=== PATIENT | male | born 1935 | race Caucasian/White ===

== ENCOUNTER 2018-04-11 09:14 | Inpatient (IN) | payer MEDICARE, MEDICAID ==
[~2018-04-11] VITALS: Ht 167.6 cm; Wt 62.0 kg
[~2018-04-11 09:14] MED LIST: ALEN10TA; ATRIN IH; COL100C PO; NAPR-232 PO; OMEP-84 PO; PROVENTIL; XANAX
[2018-04-11 10:17] LABS: BASOPHILS % (AUTO) 0.9 % (0-1); EOSINOPHILS % (AUTO) 0.4 % (0-6); HEMATOCRIT 31.8 % (42.0-52.0); HEMOGLOBIN 10.7 g/dl (14.0-17.9); LYMPHOCYTES # (AUTO) 0.4 X10'3 (1.1-4.8); LYMPHOCYTES % (AUTO) 8.9 % (21-51); MEAN CORPUSCULAR HEMOGLOBIN 34.1 PG (27.0-31.0); MEAN CORPUSCULAR HGB CONC 33.5 g/dL (33.0-36.5); MEAN CORPUSCULAR VOLUME 101.9 FL (78-98); MEAN PLATELET VOLUME 7.7 FL (7.4-10.4); MONOCYTES # (AUTO) 0.7 X10'3 (0-0.9); MONOCYTES % (AUTO) 14.1 % (2-12); NEUTROPHILS # (AUTO) 3.8 X10'3 (1.8-7.7); NEUTROPHILS % (AUTO) 75.7 % (42-75); PLATELET COUNT 197 X10'3 (140-440); RED BLOOD COUNT 3.13 X10'6 (4.70-6.10)
[2018-04-11 10:20] LABS: ALANINE AMINOTRANSFERASE 23 U/L (12-78); ALBUMIN 3.3 G/DL (3.4-5.0); ALBUMIN/GLOBULIN RATIO 1.1 (1.1-1.5); ALKALINE PHOSPHATASE 81 IU/L (46-116); ANION GAP 6 (8-16); ASPARTATE AMINO TRANSFERASE 19 U/L (10-37); BLOOD UREA NITROGEN 14 MG/DL (7-18); BUN/CREATININE RATIO 17.7 (5.4-32.0); CALCIUM 8.7 MG/DL (8.5-10.1); CHLORIDE 102 MMOL/L (99-107); CREATININE 0.79 MG/DL (0.60-1.10); GLUCOSE 93 MG/DL (70-104); POTASSIUM 4.3 MMOL/L (3.5-5.1); SODIUM 138 MMOL/L (135-145); TOTAL CARBON DIOXIDE 30.4 MMOL/L (24-32); TOTAL PROTEIN 6.3 G/DL (6.4-8.2); eGFR > 90 ML/MIN
[2018-04-11 11:06] LABS: TROPONIN I < 0.04 NG/ML (0.0-0.05)
[2018-04-11] MEDS ORDERED: iohexol 350MG/ML 100ml bottle IV ONE (11:43)
[2018-04-11] MEDS ORDERED: heparin 25,000 UNIT/250ml bag 250 ML IV SCH (12:57)
[2018-04-11] MEDS ORDERED: heparin 10,000 units/1 ML INJ IV ONE (13:00)
[2018-04-11] MEDS ORDERED: heparin 10,000 units/1 ML INJ IV PRN (13:00)
[2018-04-11] MEDS ORDERED: potassium Cl 20 mEq SR tablet PO PRN ×2 (13:25)
[2018-04-11] MEDS ORDERED: potassium Cl 40MEQ/NS 500ml 500 ML IV PRN ×2 (13:25)
[2018-04-11] MEDS ORDERED: magnesium 2GM in 50ml NS 50 ML IV PRN (13:25)
[2018-04-11] MEDS ORDERED: magnesium Cl slow-release 64mg tablet PO PRN (13:25)
[2018-04-11] MEDS ORDERED: magnesium hydroxide 30ml (MOM) UD suspension PO PRN (13:25)
[2018-04-11] MEDS ORDERED: mag hydrox/Alum hydrox/simeth 30ml oral suspension PO PRN (13:25)
[2018-04-11] MEDS ORDERED: acetaminophen 325mg tablet PO PRN (13:25)
[2018-04-11] MEDS ORDERED: magnesium 4gm in 100ml NS 100 ML IV PRN (13:25)
[2018-04-11] MEDS ORDERED: ondansetron/PF 4mg/2ml inj IV PRN (13:25)
[2018-04-11 13:29] LABS: PARTIAL THROMBOPLASTIN TIME 30 SECONDS (22-32)
[2018-04-11] MEDS: heparin 25,000 UNIT/250ml bag 250 ML IV SCH ×2 (13:35→22:41)
[2018-04-11] MEDS: normal saline 1000ml 1,000 ML IV SCH (14:52)
[2018-04-11] MEDS ORDERED: OMEP40CA37 PO (16:06)
[2018-04-11] MEDS ORDERED: ALBU18HF2 IH (16:26)
[2018-04-11] MEDS ORDERED: FLUT1AER IH (16:26)
[2018-04-11] MEDS ORDERED: TIOT18CA3 IH (16:36)
[2018-04-11 18:00] VITALS: BP 121/63
--- NOTE | 2018-04-11 18:53 | NUR ---
Problems reprioritized. Patient report given, questions answered & plan of care reviewed with Tonio SCHULZ.
[2018-04-11] MEDS: albuterol 2.5 MG/3 ML nebule NEB SCH ×2 (19:16→23:07)
[2018-04-11 19:56] LABS: ABG BASE EXCESS -0.6 mmol/L (-2.0-3.0); ABG HCO3 23.5 mmol/L (22.0-26.0); ABG OXYGEN SATURATION 95.3 % (95-98); ABG PCO2 (T) 36.6 mmHg (35.0-48.0); ABG PH (T) 7.426 (7.350-7.450); ABG PO2 (T) 77.1 mmHg (83-108); ALLEN'S TEST Positive; FCOHb 0.3 % (0.5-1.5); FLOW 1 L/min; FMetHb 0.2 % (0.3-1.12); FO2Hb 94.8 % (94-100)
[2018-04-11] MEDS ORDERED: temazepam 15mg capsule PO PRN (21:00)
[2018-04-11 22:00] VITALS: BP 124/59
[2018-04-12 02:00] VITALS: BP 133/57
[2018-04-12] MEDS: albuterol 2.5 MG/3 ML nebule NEB SCH ×4 (02:50→12:00)
[2018-04-12 05:23] LABS: HEMOGLOBIN 10.1 g/dl (14.0-17.9); LYMPHOCYTES # (AUTO) 0.4 X10'3 (1.1-4.8); LYMPHOCYTES % (AUTO) 12.7 % (21-51); MONOCYTES # (AUTO) 0.6 X10'3 (0-0.9); NEUTROPHILS # (AUTO) 2.2 X10'3 (1.8-7.7); NEUTROPHILS % (AUTO) 67.4 % (42-75); WHITE BLOOD COUNT 3.3 X10'3 (4.5-11.0)
[2018-04-12 05:27] LABS: BASOPHILS % (AUTO) 0.6 % (0-1); EOSINOPHILS % (AUTO) 0.2 % (0-6); HEMATOCRIT 29.6 % (42.0-52.0); MEAN CORPUSCULAR HEMOGLOBIN 34.9 PG (27.0-31.0); MEAN CORPUSCULAR HGB CONC 34.2 g/dL (33.0-36.5); MEAN CORPUSCULAR VOLUME 102.1 FL (78-98); MEAN PLATELET VOLUME 8.6 FL (7.4-10.4); MONOCYTES % (AUTO) 19.1 % (2-12); PLATELET COUNT 173 X10'3 (140-440); RED CELL DISTRIBUTION WIDTH 14.1 % (11.5-14.5)
[2018-04-12 05:29] LABS: ALBUMIN 2.9 G/DL (3.4-5.0); ANION GAP 10 (8-16); BLOOD UREA NITROGEN 17 MG/DL (7-18); BUN/CREATININE RATIO 22.1 (5.4-32.0); CALCIUM 8.2 MG/DL (8.5-10.1); CHLORIDE 102 MMOL/L (99-107); CREATININE 0.77 MG/DL (0.60-1.10); GLUCOSE 83 MG/DL (70-104); MAGNESIUM 1.9 MG/DL (1.5-2.4); SODIUM 137 MMOL/L (135-145); TOTAL CARBON DIOXIDE 24.6 MMOL/L (24-32); eGFR > 90 ML/MIN
[2018-04-12] MEDS: normal saline 1000ml 1,000 ML IV SCH (06:27)
[2018-04-12 07:00] VITALS: BP 127/60
[2018-04-12] MEDS: CefTRIAXone 2gm/D5W 50ml 50 ML IV SCH (07:11)
[2018-04-12] MEDS: pantoprazole 40mg Tablet.DR PO SCH (07:14)
[2018-04-12] MEDS ORDERED: pantoprazole 40 MG vial IV SCH (08:00)
[2018-04-12] MEDS: K and/or MAG REPLACEMENT MC SCH (08:00)
[2018-04-12] MEDS: enoxaparin 80mg/0.8ml syringe SUBCUT SCH ×2 (08:59→21:29)
[2018-04-12 11:00] VITALS: BP 123/54
[2018-04-12] MEDS ORDERED: bisacodyl 10mg suppository rectal RC STA (13:12)
--- NOTE | 2018-04-12 13:51 | NUR ---
Patient in room MED 307. I have received report from Tonio SCHULZ and had the opportunity to ask questions and assume patient care. Addendum: 04/12/18 at 1351 by Bladimir Prado RN @0600
--- NOTE | 2018-04-12 14:12 | NUR ---
PAGER ID: [phone] MESSAGE: [id number]. Pt's Arterial study is up. 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 Appears to have some collateral feed. Bladimir SCHULZ [id number]
[2018-04-12] MEDS ORDERED: albuterol 2.5 MG/3 ML nebule NEB PRN (14:20)
[2018-04-12 15:00] VITALS: BP 109/45
[2018-04-12] MEDS ORDERED: albuterol 2.5 MG/3 ML nebule NEB SCH (15:00)
[2018-04-12] MEDS ORDERED: ipratropium 0.5 MG/2.5ML nebule IH SCH (15:00)
[2018-04-12] MEDS: cilostazol 50mg tablet PO SCH (15:37)
[2018-04-12 18:00] VITALS: BP 138/58
--- NOTE | 2018-04-12 18:18 | NUR ---
Problems reprioritized. Patient report given, questions answered & plan of care reviewed with Jina SCHULZ.
--- NOTE | 2018-04-12 18:18 | NUR ---
Student documentation: I have reviewed and agree with all interventions, assessments performed and documented by Angelique.
[2018-04-12] MEDS: ipratropium/albuterol 3ml nebule NEB SCH (19:04)
[2018-04-12] MEDS ORDERED: [UNRECOGNIZED DRUG - OTHER] IH SCH (20:00)
[2018-04-12 23:00] VITALS: BP 104/53
[2018-04-13 03:00] VITALS: BP 120/60
[2018-04-13 06:00] VITALS: BP 111/58
[2018-04-13 06:16] LABS: HEMOGLOBIN 9.9 g/dl (14.0-17.9); LYMPHOCYTES # (AUTO) 0.9 X10'3 (1.1-4.8)
[2018-04-13 06:18] LABS: BASOPHILS % (AUTO) 0.8 % (0-1); EOSINOPHILS % (AUTO) 0.5 % (0-6); HEMATOCRIT 29.2 % (42.0-52.0); LYMPHOCYTES % (AUTO) 26.1 % (21-51); MEAN CORPUSCULAR HEMOGLOBIN 34.1 PG (27.0-31.0); MEAN CORPUSCULAR HGB CONC 33.8 g/dL (33.0-36.5); MONOCYTES # (AUTO) 0.9 X10'3 (0-0.9); MONOCYTES % (AUTO) 23.6 % (2-12); NEUTROPHILS # (AUTO) 1.8 X10'3 (1.8-7.7); PLATELET COUNT 168 X10'3 (140-440); RED BLOOD COUNT 2.89 X10'6 (4.70-6.10); RED CELL DISTRIBUTION WIDTH 13.9 % (11.5-14.5); WHITE BLOOD COUNT 3.6 X10'3 (4.5-11.0)
[2018-04-13 06:22] LABS: ALBUMIN 2.7 G/DL (3.4-5.0); ANION GAP 7 (8-16); BLOOD UREA NITROGEN 11 MG/DL (7-18); BUN/CREATININE RATIO 13.9 (5.4-32.0); CALCIUM 8.1 MG/DL (8.5-10.1); CHLORIDE 103 MMOL/L (99-107); CREATININE 0.79 MG/DL (0.60-1.10); GLUCOSE 96 MG/DL (70-104); MAGNESIUM 1.8 MG/DL (1.5-2.4); POTASSIUM 4.1 MMOL/L (3.5-5.1); SODIUM 138 MMOL/L (135-145); TOTAL CARBON DIOXIDE 28.3 MMOL/L (24-32); eGFR > 90 ML/MIN
[2018-04-13] MEDS: pantoprazole 40mg Tablet.DR PO SCH ×2 (07:30→08:47)
[2018-04-13] MEDS: BUDESONIDE 0.25 MG/2 ML AMPUL.NEB IH SCH ×2 (07:31→18:53)
[2018-04-13] MEDS: ipratropium/albuterol 3ml nebule NEB SCH ×4 (07:32→18:53)
[2018-04-13] MEDS ORDERED: non-formulary drug (Tiotropium Bromide (Spiriva) 1 CAP) IH SCH (08:00)
[2018-04-13] MEDS: K and/or MAG REPLACEMENT MC SCH (08:00)
[2018-04-13] MEDS ORDERED: non-formulary drug (Fluticasone/Vilanterol (Breo Ellipta 100-25 Mcg INH) 1 PUFF) IH SCH (08:00)
[2018-04-13] MEDS ORDERED: non-formulary drug (Omeprazole (Prilosec) 1 CAP) PO SCH (08:00)
[2018-04-13] MEDS: clopidogrel 75mg tablet PO SCH (08:47)
[2018-04-13] MEDS: enoxaparin 80mg/0.8ml syringe SUBCUT SCH ×2 (08:48→20:25)
[2018-04-13] MEDS: cilostazol 50mg tablet PO SCH ×2 (08:48→16:48)
[2018-04-13] MEDS: CefTRIAXone 2gm/D5W 50ml 50 ML IV SCH (08:49)
[2018-04-13 11:00] VITALS: BP 97/56
--- NOTE | 2018-04-13 13:37 | NUR ---
Sinus Tach Paged Dr. Self- "Re: Giovanni Choudhury in 315. FYI patient QF=[id number] sinus tach up in the chair. no other symptoms. can you call me? Thank you, Shelli ABAD [phone]" Dr. Self called back acknowledged heart rate of 115 sinus tachycardia. also said patient will be discharged tomorrow (approved for [facility] per Case Management)
[2018-04-13] MEDS: levoFLOXACIN 750MG TABLET PO SCH (13:59)
[2018-04-13 15:00] VITALS: BP 99/51
[2018-04-13 18:00] VITALS: BP 84/50
--- NOTE | 2018-04-13 18:00 | NUR ---
Patient in room MED 315. I have received report from Shelli SCHULZ and had the opportunity to ask questions and assume patient care.
[2018-04-13] MEDS: lactobacillus rhamnosus 10,000 MMU CELLS/CAPSULE PO SCH (20:26)
[2018-04-13 23:00] VITALS: BP 105/59
[2018-04-14 03:00] VITALS: BP 105/61
[2018-04-14 06:00] VITALS: BP 104/59
[2018-04-14 06:14] LABS: ALBUMIN 2.6 G/DL (3.4-5.0); ANION GAP 7 (8-16); BLOOD UREA NITROGEN 15 MG/DL (7-18); BUN/CREATININE RATIO 16.7 (5.4-32.0); CALCIUM 8.2 MG/DL (8.5-10.1); CHLORIDE 104 MMOL/L (99-107); GLUCOSE 114 MG/DL (70-104); MAGNESIUM 2.1 MG/DL (1.5-2.4); POTASSIUM 4.2 MMOL/L (3.5-5.1); SODIUM 140 MMOL/L (135-145); TOTAL CARBON DIOXIDE 29.2 MMOL/L (24-32); eGFR 80 ML/MIN
[2018-04-14 06:15] LABS: BASOPHILS % (AUTO) 0.5 % (0-1); EOSINOPHILS % (AUTO) 0.5 % (0-6); HEMATOCRIT 28.5 % (42.0-52.0); HEMOGLOBIN 9.8 g/dl (14.0-17.9); LYMPHOCYTES # (AUTO) 1.4 X10'3 (1.1-4.8); LYMPHOCYTES % (AUTO) 34.6 % (21-51); MEAN CORPUSCULAR HEMOGLOBIN 34.6 PG (27.0-31.0); MEAN CORPUSCULAR HGB CONC 34.5 g/dL (33.0-36.5); MEAN CORPUSCULAR VOLUME 100.4 FL (78-98); MEAN PLATELET VOLUME 8.1 FL (7.4-10.4); MONOCYTES # (AUTO) 0.8 X10'3 (0-0.9); MONOCYTES % (AUTO) 20.7 % (2-12); NEUTROPHILS # (AUTO) 1.7 X10'3 (1.8-7.7); NEUTROPHILS % (AUTO) 43.7 % (42-75); PLATELET COUNT 174 X10'3 (140-440); RED BLOOD COUNT 2.84 X10'6 (4.70-6.10); RED CELL DISTRIBUTION WIDTH 14.2 % (11.5-14.5); WHITE BLOOD COUNT 3.9 X10'3 (4.5-11.0)
[2018-04-14] MEDS: BUDESONIDE 0.25 MG/2 ML AMPUL.NEB IH SCH (07:15)
[2018-04-14] MEDS: ipratropium/albuterol 3ml nebule NEB SCH ×2 (07:15→11:16)
[2018-04-14] MEDS: clopidogrel 75mg tablet PO SCH (07:17)
[2018-04-14] MEDS: lactobacillus rhamnosus 10,000 MMU CELLS/CAPSULE PO SCH (07:17)
[2018-04-14] MEDS: pantoprazole 40mg Tablet.DR PO SCH ×2 (07:17→07:30)
[2018-04-14] MEDS: cilostazol 50mg tablet PO SCH (07:18)
[2018-04-14] MEDS: enoxaparin 80mg/0.8ml syringe SUBCUT SCH (07:19)
[2018-04-14] MEDS: K and/or MAG REPLACEMENT MC SCH (08:00)
[2018-04-14 11:00] VITALS: BP 126/64
--- NOTE | 2018-04-14 11:30 | NUR ---
pt report called to [facility] station #2 to Brandi COLMENARES and all questions answered.
--- NOTE | 2018-04-14 11:30 | NUR ---
notified pt's neighbor of transfer to [facility].
[2018-04-14] MEDS: levoFLOXACIN 750MG TABLET PO SCH (11:37)
--- NOTE | 2018-04-14 13:26 | NUR ---
PAGER ID: [phone] MESSAGE: Giovanni Choudhury. rm 315. his HR is still trending in the 113s with bursts to 130s it is still sinus tach. he isn't on an antiarrhythmic. should we give him a PO dose before he leaves? thank you Tanika SCHULZ ext [phone]
[2018-04-14] MEDS ORDERED: diltiazem CD 120mg capsule (once-daily) PO STA (13:28)
--- NOTE | 2018-04-14 13:50 | NUR ---
pt educated on all transfer care, removed from cardiac monitoring, IV d/c'd; cannula intact. [facility]
== END 2018-04-14 13:50 | DRG 175 ==
LOC: ER 09:14 → ED HOLD 13:25 → MED 3N 17:48
PROVIDERS: ADMIT Internal Medicine; ATTEND Internal Medicine
DX: I26.92 Saddle embolus of pulmonary artery without acute cor pulmonale (principal); J18.9 Pneumonia, unspecified organism; J44.0 Chronic obstructive pulmonary disease with (acute) lower respiratory infection; M19.90 Unspecified osteoarthritis, unspecified site; R91.8 Other nonspecific abnormal finding of lung field; I73.9 Peripheral vascular disease, unspecified; Z99.81 Dependence on supplemental oxygen; Z87.891 Personal history of nicotine dependence
CPT/HCPCS: 36415; 36600; 71045; 71275; 80048; 80053; 82803; 83605; 83735; 83880; 84484; 85018; 85025; 85730; 87040; 87070; 93005; 93306; 93922; 93925; 93970; 94640; 94760; 96374; 97116; 97161; 97530; 99291; G0378; J0696; J1644; J1650; J7030; Q9967